=== PATIENT | male | born 1980 | race Two or more races ===

== ENCOUNTER 2020-09-23 18:59 | Emergency (ER) | payer MEDICAID, OTHER ==
[~2020-09-23] VITALS: Ht 175.3 cm; Wt 75.0 kg
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
--- NOTE | 2020-09-23 19:36 | NUR ---
PT RESTING ON [facility], AWAITING ERP EVAL, UNABLE TO PROVIDE UA AT THIS TIME. PT ASKING IF THERE IS SOMETHING BEHIND THE DOOR IN THE SECURED ROOMS. RN EXPLAINED THAT THERE IS NOT. PT DENIES ADDITIONAL NEEDS. WCTM. SITTER IN LINE OF SIGHT, ROOM SECURED.
[2020-09-23] MEDS ORDERED: ZIPRASIDONE 20 MG INJ IM ONE ×2 (19:51→20:00)
[2020-09-23 20:23] LABS: BASOPHILS % (AUTO) 1 % (0-1); EOSINOPHILS % (AUTO) 1 % (1-7); LYMPHOCYTES % (AUTO) 19 % (22-44); MEAN CORPUSCULAR HGB CONC 34.3 g/dL (33.2-36.2); MEAN PLATELET VOLUME 7.9 fL (7.4-10.4); MONOCYTES % (AUTO) 11 % (2-9); NEUTROPHILS % (AUTO) 69 % (42-75); PLATELET COUNT 268 x10^3/uL (130-400); RED BLOOD COUNT 4.34 x10^6/uL (4.38-5.82); RED CELL DISTRIBUTION WIDTH 12.8 % (9.4-14.8)
[2020-09-23 20:25] LABS: MD NO
--- NOTE | 2020-09-23 20:25 | NUR ---
UA OBTAINED AND SENT, PT MEDICATED PER AUG, APPEARS MORE RELAXED AT THIS TIME, ROOM SECURE, SITTER IN LINE OF SIGHT, DENIES ADDITIONAL NEEDS, LIGHTS DIMMED MORE COMFORT, WCTM.
[2020-09-23 20:32] LABS: ALBUMIN 3.9 g/dL (3.4-5.0); ANION GAP 8 mmol/L (5-15); CALCIUM 9.2 mg/dL (8.5-10.1); CHLORIDE 107 mmol/L (98-107); CREATININE 0.89 mg/dL (0.7-1.3)
[2020-09-23 20:33] LABS: SALICYLATE LEVEL < 1.7 mg/dL (2.8-20.0)
[2020-09-23 20:47] LABS: AMPHETAMINE SCREEN, URINE Positive (Negative); BARBITURATE SCREEN, URINE Negative (Negative); BENZODIAZEPINE SCREEN, URINE Negative (Negative); CANNABINOID SCREEN, URINE Negative (Negative); COCAINE SCREEN, URINE Negative (Negative); METHADONE SCREEN, URINE Negative (Negative); OPIATE SCREEN, URINE Negative (Negative)
--- NOTE | 2020-09-23 21:43 | NUR ---
pt resting on gurney, nad, appears comfortable, room secured, bed in lowest, rails engaged, eyes closed, even and unlabored respirations, wctm. sitter in line of sight.
--- NOTE | 2020-09-23 23:39 | NUR ---
pt resting on gurney, nad, eyes closed, appears comfortable, no change in condition, wctm.
--- NOTE | 2020-09-24 00:42 | NUR ---
Break RN: patient sitting upright in [facility]. No complaints at this time. Respirations even and unlabored. Room secured. Belongings locked in cabinet. Sitter outside.
--- NOTE | 2020-09-24 01:10 | NUR ---
PT PROVIDED MEAL FOR COMFORT, NAD, NOW RESTING WITH EYES CLOSED, EVEN AND UNLABORED RESPIRATIONS, ROOM SECURED, SITTER IN LINE OF SIGHT, [facility]. L2K
--- NOTE | 2020-09-24 03:32 | NUR ---
pt resting on gurney, nad, eyes open, even and unlabored respirations noted, appears comfortable, sitter in line of sight, room secured. wctm. L2K
--- NOTE | 2020-09-24 04:22 | NUR ---
Patient with [employer] insurance. Packet faxed to and [facility].
--- NOTE | 2020-09-24 04:37 | NUR ---
[place] denied patient.
--- NOTE | 2020-09-24 04:43 | NUR ---
Patient has also been denied by [facility] so therefore is [facility] ONLY.
--- NOTE | 2020-09-24 05:17 | NUR ---
pt resting on hospital bed, nad, appears comfortable, eyes closed, even and unlabored respirations noted, sitter in line of sight, room secured. wctm. L2K
--- NOTE | 2020-09-24 06:25 | NUR ---
pt resting on hospital bed, eyes open, even and unlabored respirations, appears comfortable. pt nad, breakfast tray ordered, room secured, sitter in line of sight, tm. L2K
--- NOTE | 2020-09-24 06:54 | NUR ---
report to vanda nelson, pt care transferred at this time.
[2020-09-24 07:41] VITALS: BP 123/72
--- NOTE | 2020-09-24 07:42 | NUR ---
PT resting in bed, safety precautions in place. Meal provided.
--- NOTE | 2020-09-24 11:14 | NUR ---
[facility] at bedside to discuss poc.
--- NOTE | 2020-09-24 11:29 | NUR ---
Discharge instructions reviewed, belongings returned to patient. Taxi voucher provided to [facility].
== END 2020-09-24 11:33 ==
LOC: ED 09-24 03:22
DX: F15.250 Other stimulant dependence with stimulant-induced psychotic disorder with delusions (principal); R45.851 Suicidal ideations; F32.9 Major depressive disorder, single episode, unspecified; R00.0 Tachycardia, unspecified
CPT/HCPCS: 36415; 80048; 80299; 80307; 80320; 80329; 82040; 85025; 96372; 99285; J3486; G0480

== ENCOUNTER 2020-09-24 17:31 | Emergency (ER) | payer MEDICAID ==
[~2020-09-24] VITALS: Ht 175.3 cm; Wt 71.1 kg
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
--- NOTE | 2020-09-24 18:50 | NUR ---
report to agustin
[2020-09-24 19:23] VITALS: BP 132/78
== END 2020-09-24 19:27 | disposition home or self-care (01) ==
LOC: ED 18:09
DX: F15.19 Other stimulant abuse with unspecified stimulant-induced disorder (principal); F22 Delusional disorders; R45.851 Suicidal ideations; Z91.14 Patient's other noncompliance with medication regimen
CPT/HCPCS: 99281